=== PATIENT | female | born 1955 | race Caucasian/White ===

== ENCOUNTER → 2017-01-10 | Outpatient (CLI) | payer BC ==
--- NOTE | 2017-01-16 07:36 | MM ---
Reason for exam: screening (asymptomatic). Last mammogram was performed 4 years ago. History: Patient is postmenopausal and has history of other cancer at age 36. Family history of breast cancer in sister at age 51. Benign right mammotome panel of the right breast, October 08, 2006. Physical Findings: A clinical breast exam by your physician is recommended on an annual basis and results should be correlated with mammographic findings. MG Screening Mammo w CAD Bilateral CC and MLO view(s) were taken. Prior study comparison: January 19, 2013, bilateral digital screening mammo w/CAD. October 22, 2011, mammogram, performed at [facility]. July 17, 2010, mammogram, performed at [facility]. The breast tissue is heterogeneously dense. This may lower the sensitivity of mammography. Finding: There are grouped/clustered, faint calcifications in the middle position of the right breast, seen on CC view, 5 cm from the nipple. Previous mammotome biopsy in the right breast. ASSESSMENT: Incomplete: need additional imaging evaluation, BI-RAD 0 RECOMMENDATION: Special view mammogram of the right breast. [facility] will attempt to contact patient to return for supplemental views.
== END | disposition home or self-care (01) ==
LOC: RADMAMWWP 15:00
PROVIDERS: ATTEND Obstetrics & Gynecology
DX: Z12.31 Encounter for screening mammogram for malignant neoplasm of breast (principal)

== ENCOUNTER → 2017-01-20 | Outpatient (CLI) | payer BC ==
--- NOTE | 2017-01-20 08:38 | MM ---
Reason for exam: additional evaluation requested from abnormal screening. Last mammogram was performed less than 1 month ago. History: Patient is postmenopausal and has history of other cancer at age 36. Family history of breast cancer in sister at age 51. Benign right mammotome panel of the right breast, October 08, 2006. Physical Findings: Nurse did not find any significant physical abnormalities on exam. MG 3D Work Up W/Cad RT Spot compression ML, CC with magnification, MLO with magnification, and ML with magnification view(s) were taken of the right breast. Prior study comparison: January 10, 2017, bilateral MG screening mammo w CAD. January 19, 2013, bilateral digital screening mammo w/CAD. The breast tissue is heterogeneously dense. This may lower the sensitivity of mammography. Finding: There are typically benign calcifications in the right breast. These results were verbally communicated with the patient and result sheet given to the patient on 01/20/17. ASSESSMENT: Benign, BI-RAD 2 RECOMMENDATION: Return to routine screening mammogram schedule for both breasts.
== END | disposition home or self-care (01) ==
LOC: RADMAMWWP 07:38
PROVIDERS: ATTEND Obstetrics & Gynecology
DX: R92.8 Other abnormal and inconclusive findings on diagnostic imaging of breast (principal)
CPT/HCPCS: G0206; G0279

== ENCOUNTER → 2017-04-28 | Outpatient (CLI) | payer OTHER ==
--- NOTE | 2017-04-28 15:31 | XR ---
EXAM TYPE: LUMBAR SPINE X RAY SERIES COMPARISON: NONE HISTORY: Back pain TECHNIQUE: 3 views are submitted. FINDINGS: Alignment is anatomic. The pedicles are intact. The transverse processes are intact. There is a le voscoliotic curvature with multilevel degenerative disc disease and diffuse osteopenia. 1 cm calcific ation overlying the right kidney could be related to renal stone. Facet arthropathy noted. IMPRESSION: 1. Multilevel severe degenerative disc disease and facet arthropathy. Foraminal encroachment L5-S1 [place] spected.
--- NOTE | 2017-04-28 15:32 | XR ---
EXAMINATION TYPE: XR thoracic spine complete DATE OF EXAM: 04/28/2017 COMPARISON: NONE HISTORY: Back pain Alignment is anatomic. There is no compression deformities. Vertebral body height and disc interspa ivory are maintained. Diffuse osteopenia noted. Hypertrophic changes of the spine are noted. No compre ssion deformities. Slight curvature of the spine. IMPRESSION: 1. Multilevel moderate degenerative disc disease.
== END | disposition home or self-care (01) ==
LOC: RADXRMAIN 15:06
PROVIDERS: ATTEND Emergency Medicine
DX: M51.35 Other intervertebral disc degeneration, thoracolumbar region (principal); M46.06 Spinal enthesopathy, lumbar region
CPT/HCPCS: 72072; 72100

== ENCOUNTER → 2017-08-06 | Outpatient (CLI) | payer BC ==
--- NOTE | 2017-08-07 10:27 | ECHOF ---
Referral Reason:R06.00 dyspnea MEASUREMENTS -------- HEIGHT: 170.2 cm WEIGHT: 81.6 kg BP: RVIDd: 3.4 cm (< 3.3) IVSd: 1.2 cm (0.6 - 1.1) LVIDd: 3.7 cm (3.9 - 5.3) LVPWd: 1.2 cm (0.6 - 1.1) IVSs: 1.2 cm LVIDs: 3.6 cm LVPWs: 1.3 cm LAESV Index (A-L): 18.06 ml/m Ao Diam: 2.6 cm (2.0 - 3.7) AV Cusp: 2.1 cm (1.5 - 2.6) LA Diam: 3.4 cm (2.7 - 3.8) MV EXCURSION: 16.638 mm (> 18.000) MV EF SLOPE: 106 mm/s (70 - 150) EPSS: 0.3 cm MV E Keenan: 0.45 m/s MV DecT: 175 ms MV A Keenan: 0.61 m/s MV E/A Ratio: 0.74 RAP: 5.00 mmHg RVSP: 14.73 mmHg FINDINGS -------- Sinus rhythm. This was a technically adequate study. The left ventricular size is normal. There is mild concentric left ventricular hypertrophy. Overall left ventricular systolic function is normal with, an EF between 55 - 60 %. The right ventricle is severely enlarged. The right atrial size is normal. The aortic valve is trileaflet, and appears structurally normal. No aortic stenosis or regurgitation. Mild mitral regurgitation is present. Mild tricuspid regurgitation present. There is no evidence of pulmonary hypertension. The right ventricular systolic pressure, as measured by Doppler, is 14.73mmHg. There is no pulmonic regurgitation present. The aortic root size is normal. There is no pericardial effusion. CONCLUSIONS -------- 1. The left ventricular size is normal. 2. There is no pulmonic regurgitation present. 3. The aortic root size is normal. 4. There is no pericardial effusion. 5. There is mild concentric left ventricular hypertrophy. 6. Overall left ventricular systolic function is normal with, an EF between 55 - 60 %. 7. The right ventricle is severely enlarged. 8. The aortic valve is trileaflet, and appears structurally normal. No aortic stenosis or regurgitation. 9. Mild mitral regurgitation is present. 10. Mild tricuspid regurgitation present. 11. There is no evidence of pulmonary hypertension. 12. The right ventricular systolic pressure, as measured by Doppler, is 14.73mmHg. ARTIFICIAL LIMB FITTER: Swati Peters RDCS
== END ==
LOC: RADECHMAIN 12:56
PROVIDERS: ATTEND Family Medicine
DX: I08.1 Rheumatic disorders of both mitral and tricuspid valves (principal)
CPT/HCPCS: 93306

== ENCOUNTER → 2017-08-26 | Outpatient (CLI) | payer BC ==
--- NOTE | 2017-08-26 12:50 | CT ---
EXAMINATION TYPE: CT angio chest DATE OF EXAM: 08/26/2017 12:38 PM COMPARISON: NONE HISTORY: Dyspnea CT DLP: 463 mGycm Automated exposure control for dose reduction was used. CONTRAST: CTA scan of the thorax is performed with IV Contrast, patient injected with 100 ml mL of Omnipaque 35 0, pulmonary embolism protocol. . FINDINGS: LUNGS: The lungs are grossly clear, there is no concerning parenchymal mass or nodule identified. T here is no pleural effusion or pneumothorax seen. The tracheobronchial tree is patent. MEDIASTINUM: There is satisfactory enhancement of the pulmonary artery and its branches, there is no CT evidence for pulmonary embolism. There are no greater than 1 cm hilar or mediastinal lymph nodes. No pericardial effusion is seen. Heart is mildly prominent. OTHER: Hypertrophic and degenerative change of the spine noted. Small hiatal hernia noted. IMPRESSION: NO EVIDENCE OF PULMONARY.
== END | disposition home or self-care (01) ==
LOC: RADCTMAIN 11:38
PROVIDERS: ATTEND Nurse Practitioner Adult Health
DX: R06.00 Dyspnea, unspecified (principal)
CPT/HCPCS: 71275; Q9967

== ENCOUNTER → 2018-12-17 | Outpatient (CLI) | payer BC ==
--- NOTE | 2018-12-18 14:34 | MM ---
Reason for exam: screening (asymptomatic). Last mammogram was performed 1 year and 11 months ago. History: Patient is postmenopausal and has history of other cancer at age 36. Family history of breast cancer in sister at age 51. Benign right mammotome panel of the right breast, October 08, 2006. Physical Findings: A clinical breast exam by your physician is recommended on an annual basis and results should be correlated with mammographic findings. MG Screening Mammo w CAD Bilateral CC and MLO view(s) were taken. Prior study comparison: January 20, 2017, right breast MG 3d work up w/cad RT. January 10, 2017, bilateral MG screening mammo w CAD. The breast tissue is heterogeneously dense. This may lower the sensitivity of mammography. Benign appearing bilateral calcifications. No suspicious abnormality. Right biopsy marker noted. No significant changes when compared with prior studies. ASSESSMENT: Benign, BI-RAD 2 RECOMMENDATION: Routine screening mammogram of both breasts in 1 year.
== END | disposition home or self-care (01) ==
LOC: RADMAMWWP 14:56
PROVIDERS: ATTEND Obstetrics & Gynecology
DX: Z12.31 Encounter for screening mammogram for malignant neoplasm of breast (principal); Z80.3 Family history of malignant neoplasm of breast
CPT/HCPCS: 77067

== ENCOUNTER 2019-04-18 07:55 | Emergency (ER) | payer BC ==
[2019-04-18 08:00] VITALS: BP 137/76; PULSE 80; RESP 16; TEMP 97.8
[2019-04-18] MEDS ORDERED: IBUPROFEN 600 MG TAB PO STA (08:15)
[2019-04-18] MEDS ORDERED: ACET/COD 300 MG/30 MG STARTER PACK 6 TAB BTL PO STA (08:15)
--- NOTE | 2019-04-18 08:20 | ED ---
General Adult HPI - General Chief complaint: Fall Stated complaint: Knee injury Time Seen by Provider: 04/18/19 08:02 Source: patient, RN notes reviewed, old records reviewed Mode of arrival: wheelchair Limitations: no limitations - History of Present Illness Initial comments: Patient is a 63-year-old female concerns from today for evaluation with compl aints of bilateral knee pain. Patient reports that she tripped and fell on both of her knees and concrete cement. Patient relates that she has a history of left patella fracture. Patient states she's wearing discomfort. Again today. She states she has some swelling and pain in both knees, however the rate seems to be worse. Patient denies any peripheral paresthesias. She states that she's noticed some swelling and minor abrasion over bilateral knees. Patient states that she did seen an orthopedic in [place]. She denies any other symptoms, including head injury, neck injury, or back pain or hip pain.Patient denies any recent fever, chills, shortness of breath, chest pain, back pain, abdominal pain, nausea vomiting, numbness or tingling, dysuria or hematuria, constipation or diarrhea, headaches or visual changes, or any other current symptoms - Related Data Home Medications Medication Instructions Recorded Confirmed Omeprazole [PriLOSEC] 20 mg PO AC-BRKFST 10/26/15 11/08/15 Sucralfate [Carafate] 1 gm PO AC-SUPPER 10/26/15 11/08/15 Previous Rx's Medication Instructions Recorded HYDROcodone/APAP 5-325MG [[place] 1 tab PO Q4HR PRN #30 tab 11/08/15 5-325] Magnesium Hydroxide [Milk of 30 ml PO Q24HR PRN #600 ml 11/08/15 Magnesia] Allergies Allergy/AdvReac Type Severity Reaction Status Date / Time Iodinated Contrast- Oral and Allergy Anaphylaxis Verified 04/18/19 08:01 IV Dye lactose Allergy Abdominal Verified 04/18/19 08:01 Pain latex Allergy RASH,SWELLI Verified 04/18/19 08:01 NG Sulfa (Sulfonamide Allergy Anaphylaxis Verified 04/18/19 08:01 Antibiotics) venom-honey bee Allergy Anaphylaxis Verified 04/18/19 08:01 [bee venom (honey bee)] Review of Systems ROS Statement: Those systems with pertinent positive or pertinent negative responses have been documented in the HPI. ROS Other: All systems not noted in ROS Statement are negative. 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 ruputred disc in back History of Any Multi-Drug Resistant Organisms: None Reported Past Surgical History: Hysterectomy, Orthopedic Surgery Additional Past Surgical History / Comment(s): left knee, Past Psychological History: No Psychological Hx Reported Smoking Status: Former smoker Past Alcohol Use History: Occasional Past Drug Use History: None Reported General Exam - General Exam Comments Initial Comments: Well-appearing alert and oriented 63-year-old female. No distress. Limitations: no limitations General appearance: alert, in no apparent distress Head exam: Present: atraumatic, normocephalic, normal inspection Eye exam: Present: normal appearance, PERRL, EOMI. Absent: scleral icterus, conjunctival injection, periorbital swelling ENT exam: Present: normal exam, mucous membranes moist Neck exam: Present: normal inspection. Absent: tenderness, meningismus, lymphadenopathy Respiratory exam: Present: normal lung sounds bilaterally. Absent: respiratory distress, wheezes, rales, rhonchi, stridor Cardiovascular Exam: Present: regular rate, normal rhythm, normal heart sounds. Absent: systolic murmur, diastolic murmur, rubs, gallop, clicks GI/Abdominal exam: Present: soft, normal bowel sounds. Absent: distended, tenderness, guarding, rebound, rigid Extremities exam: Present: normal inspection, full ROM, normal capillary refill, other (Lateral minimal knee effusion. Full range of motion. Abrasion noted over the left knee. Patient has dorsalis pedis pulse bilaterally and full range of motion of the leg.). Absent: tenderness, pedal edema, joint swelling, calf tenderness Back exam: Present: normal inspection Neurological exam: Present: alert, oriented X3, CN II-XII intact Psychiatric exam: Present: normal affect, normal mood Skin exam: Present: warm, dry, intact, normal color. Absent: rash Course Vital Signs 04/18/19 07:57 Temperature 97.8 F Pulse Rate 80 Respiratory 16 Rate Blood Pressure 137/76 O2 Sat by Pulse 99 Oximetry Medical Decision Making - Medical Decision Making 63-year-old female presented today after tripping and falling, landing on bilateral knees on concrete. Patient's knee x-rays today are negative for acute process. She does have minimal joint swelling. Patient's right lateral knee x- ray is unremarkable for any fracture or dislocation. With this joint swelling and follow discuss possibly meniscal injury. Patient does have good range of motion. I offered the Patient be immobilized however discussed could inhibit patient's ambulation. Patient was given bilateral Grey wraps. I discussed proper follow-up with patent law specialist. Discussed Motrin Tylenol for pain. - Radiology Data Radiology results: report reviewed X-ray's of bilateral knee showed no acute osseous lesion. No significant fracture dislocation or joint effusion. Disposition Clinical Impression: Fall, Joint effusion, knee Disposition: HOME SELF-CARE Condition: Good Instructions (If sedation given, give patient instructions): Fall Prevention (ED), Swollen Knee Joint (ED) Additional Instructions: Patient should ice the knees for 20 minutes every few hours. Patient should wear the Grey wrap to aid with swelling. Follow-up with patent law specialist. Take Motrin and Tylenol for pain. Return to the emergency department if any alarming signs or symptoms occur. Is patient prescribed a controlled substance at d/c from ED?: No Referrals: Roverto Alberts MD [Primary Care Provider] - 1-2 days Tian Jennings DO [Doctor of Osteopathic Medicine] - 1-2 days Time of Disposition: 09:02
--- NOTE | 2019-04-18 08:30 | XR ---
EXAMINATION TYPE: XR knee complete bilateral , 6 VIEWS DATE OF EXAM ORDERED: 04/18/2019 HISTORY: Pain. COMPARISON: None. FINDINGS: No fracture, dislocation or joint effusion is seen. IMPRESSION: NO ACUTE OSSEOUS LESION.
== END 2019-04-18 09:45 | disposition home or self-care (01) ==
LOC: EC 07:55
DX: M25.462 Effusion, left knee (principal); M25.461 Effusion, right knee; Z87.891 Personal history of nicotine dependence; Z79.899 Other long term (current) drug therapy; Z88.2 Allergy status to sulfonamides; Z91.041 Radiographic dye allergy status; Z91.011 Allergy to milk products; Z91.048 Other nonmedicinal substance allergy status; Z91.030 Bee allergy status; W01.0XXA Fall on same level from slipping, tripping and stumbling without subsequent striking against object, initial encounter; Y92.009 Unspecified place in unspecified non-institutional (private) residence as the place of occurrence of the external cause
CPT/HCPCS: 99284

== ENCOUNTER → 2020-07-11 | Outpatient (CLI) | payer BC ==
--- NOTE | 2020-07-12 12:02 | MM ---
Reason for exam: screening (asymptomatic). Last mammogram was performed 1 year and 7 months ago. History: Patient is postmenopausal and has history of other cancer at age 36. Family history of breast cancer in sister at age 51. Benign right mammotome panel of the right breast, October 08, 2006. Physical Findings: A clinical breast exam by your physician is recommended on an annual basis and results should be correlated with mammographic findings. MG 3D Screening Mammo W/Cad Bilateral CC and MLO view(s) were taken. Prior study comparison: December 17, 2018, bilateral MG screening mammo w CAD. January 20, 2017, right breast MG 3d work up w/cad RT. The breast tissue is heterogeneously dense. This may lower the sensitivity of mammography. No significant changes when compared with prior studies. ASSESSMENT: Benign, BI-RAD 2 RECOMMENDATION: Routine screening mammogram of both breasts in 1 year.
== END | disposition home or self-care (01) ==
LOC: RADMAMWWP 14:27
PROVIDERS: ATTEND Family Medicine
DX: Z12.31 Encounter for screening mammogram for malignant neoplasm of breast (principal)
CPT/HCPCS: 77063; 77067

== ENCOUNTER → 2022-02-20 | Outpatient (CLI) | payer BC ==
--- NOTE | 2022-02-21 13:11 | MM ---
Reason for exam: screening (asymptomatic). Last mammogram was performed 1 year and 7 months ago. History: Patient is postmenopausal and has history of other cancer at age 36. Family history of breast cancer in sister at age 51. Benign right mammotome panel of the right breast, October 08, 2006. Physical Findings: A clinical breast exam by your physician is recommended on an annual basis and results should be correlated with mammographic findings. MG 3D Screening Mammo W/Cad Bilateral CC and MLO view(s) were taken. Technologist: RT Itzel (R)(M) Prior study comparison: July 11, 2020, bilateral MG 3d screening mammo w/cad. December 17, 2018, bilateral MG screening mammo w CAD. The breast tissue is heterogeneously dense. This may lower the sensitivity of mammography. Finding #1: There is a 9 mm obscured oval mass in the outer quadrant, anterior, central position of the left breast on MLO 14/65. Finding #2: There are typically benign vascular calcifications in both breasts. ASSESSMENT: Incomplete: need additional imaging evaluation, BI-RAD 0 RECOMMENDATION: Special view mammogram of the left breast. If lesion persists on supplemental views, image directed ultrasound is recommended. [facility] will attempt to contact patient to return for supplemental views and ultrasound if indicated.
== END | disposition home or self-care (01) ==
LOC: RADMAMWWP 09:37
PROVIDERS: ATTEND Obstetrics & Gynecology
DX: Z12.31 Encounter for screening mammogram for malignant neoplasm of breast (principal); Z78.0 Asymptomatic menopausal state; Z80.3 Family history of malignant neoplasm of breast
CPT/HCPCS: 77063; 77067

== ENCOUNTER → 2022-02-22 | Outpatient (CLI) | payer BC ==
--- NOTE | 2022-02-22 10:05 | MM ---
Reason for exam: additional evaluation requested from abnormal screening. Last mammogram was performed less than 1 month ago. History: Patient is postmenopausal and has history of other cancer at age 36. Family history of breast cancer in sister at age 51. Benign right mammotome panel of the right breast, October 08, 2006. Physical Findings: A clinical breast exam by your physician is recommended on an annual basis and results should be correlated with mammographic findings. MG 3D Work Up W/Cad LT Spot compression CC, spot compression MLO, and ML view(s) were taken of the left breast. Prior study comparison: February 20, 2022, bilateral MG 3d screening mammo w/cad. July 11, 2020, bilateral MG 3d screening mammo w/cad. The breast tissue is heterogeneously dense. This may lower the sensitivity of mammography. Finding: There is a 6 mm obscured oval mass in the left breast, does not go away on additional views. Results were given to the patient verbally at the time of the exam. ASSESSMENT: Incomplete: need additional imaging evaluation, BI-RAD 0 RECOMMENDATION: Ultrasound of the left breast.
--- NOTE | 2022-02-22 10:06 | USB ---
Reason for exam: additional evaluation requested from abnormal screening. History: Patient is postmenopausal and has history of other cancer at age 36. Family history of breast cancer in sister at age 51. Benign right mammotome panel of the right breast, October 08, 2006. Physical Findings: A clinical breast exam by your physician is recommended on an annual basis and results should be correlated with mammographic findings. US Breast Workup Limited LT Left limited breast ultrasound including focal area of concern, retroareolar and axilla demonstrates a 0.4 x 0.4 x 0.4cm round, cystic lesion at 4 o'clock, 3cm from nipple and a 0.9 x 1.4 x 0.4cm oval, cystic lesion at 6 o'clock, 1cm from nipple. Simple cysts. Results were given to the patient verbally at the time of the exam. ASSESSMENT: Benign, BI-RAD 2 RECOMMENDATION: Return to routine screening mammogram schedule for both breasts.
== END | disposition home or self-care (01) ==
LOC: RADMAMWWP 08:43
PROVIDERS: ATTEND Obstetrics & Gynecology
DX: R92.8 Other abnormal and inconclusive findings on diagnostic imaging of breast (principal); Z78.0 Asymptomatic menopausal state; Z80.3 Family history of malignant neoplasm of breast
CPT/HCPCS: 77061; 77065